=== PATIENT | male | born 1990 | race Caucasian/White ===

== ENCOUNTER 2020-11-25 16:21 | Observation (INO) | payer BC ==
[~2020-11-25] VITALS: Ht 182.9 cm; Wt 96.6 kg
[2020-11-25 16:21] VITALS: BP 123/84
[2020-11-25 16:56] LABS: BASO % 0.1 % (0.0-1.0); EOS # 0.1 10*3/uL (0.0-0.4); EOS % 0.7 % (1.0-4.0); HEMATOCRIT 42.6 % (42.0-52.0); LYMPH % 13.7 % (27.0-41.0); MEAN CELL VOLUME 90.4 fl (80.0-94.0); MEAN CORPUSCULAR HGB 30.6 pg (27.0-31.0); MEAN CORPUSCULAR HGB CONC 33.8 g/dl (33.0-37.0); MONO # 0.3 10*3/uL (0.1-1.0); MONO % 4.2 % (3.0-9.0); NEUT # 5.9 10*3/uL (2.3-7.9); PLATELET COUNT AUTOMATED 208 10*3/uL (130-400); RED BLOOD COUNT 4.71 10*6/uL (4.50-5.90); RED CELL DISTRI WIDTH 12.3 % (0-14.5); WHITE BLOOD COUNT 7.3 10*3/uL (4.8-10.8)
[2020-11-25 17:07] LABS: ACT PARTIAL THROMBO TIME 26.4 SECONDS (20.0-32.1); INTERNATIONAL NORM RATIO 1.1 (2.0-3.5)
[2020-11-25 17:15] LABS: ALBUMIN 3.6 gm/dl (3.1-4.5); ALKALINE PHOSPHATASE 58 U/L (45-117); BUN 13 mg/dl (7-24); CHLORIDE 108 mmol/L (98-107); CREATININE 0.88 mg/dL (0.70-1.30); LIPASE 113 U/L (73-393); POTASSIUM 4.1 mmol/L (3.5-5.1); SGOT/AST 9 IU/L (3-35); SGPT/ALT 23 U/L (12-78); SODIUM 139 mmol/L (136-145); TOTAL PROTEIN 6.9 gm/dL (6.4-8.2); TROPONIN I < 0.015 ng/ml (<0.045)
[2020-11-25 21:00] VITALS: BP 120/80
[2020-11-25 21:45] VITALS: BP 128/81
[2020-11-25] MEDS ORDERED: ZINC30 M1 PO (22:02)
[2020-11-25] MEDS ORDERED: VITAMIN D350 MCG PO (22:02)
[2020-11-26] VITALS: BP 118/79
[2020-11-26 06:09] LABS: BUN 12 mg/dl (7-24); CHLORIDE 108 mmol/L (98-107); CREATININE 0.87 mg/dL (0.70-1.30); POTASSIUM 3.8 mmol/L (3.5-5.1); SODIUM 140 mmol/L (136-145)
[2020-11-26 06:13] LABS: BASO % 0.2 % (0.0-1.0); EOS # 0.1 10*3/uL (0.0-0.4); EOS % 2.2 % (1.0-4.0); HEMATOCRIT 41.3 % (42.0-52.0); LYMPH # 3.2 10*3/uL (1.3-4.4); LYMPH % 49.8 % (27.0-41.0); MEAN CELL VOLUME 91.6 fl (80.0-94.0); MEAN CORPUSCULAR HGB 30.4 pg (27.0-31.0); MEAN CORPUSCULAR HGB CONC 33.2 g/dl (33.0-37.0); MEAN PLATELET VOLUME 9.1 fl (9.6-12.3); MONO # 0.5 10*3/uL (0.1-1.0); MONO % 7.5 % (3.0-9.0); NEUT # 2.6 10*3/uL (2.3-7.9); PLATELET COUNT AUTOMATED 222 10*3/uL (130-400); RED BLOOD COUNT 4.51 10*6/uL (4.50-5.90); RED CELL DISTRI WIDTH 12.5 % (0-14.5); WHITE BLOOD COUNT 6.4 10*3/uL (4.8-10.8)
[2020-11-26 08:00] VITALS: BP 113/60
[2020-11-26 12:00] VITALS: BP 119/63
== END 2020-11-26 16:30 | disposition home or self-care (01) ==
LOC: ED 16:21 → EDHOLD 18:28 → 4E 19:45
PROVIDERS: Emergency Medicine; Internal Medicine; ADMIT Student in an Organized Health Care Education/Training Program; ATTEND Student in an Organized Health Care Education/Training Program
DX: U07.1 COVID-19 (principal); S16.1XXA Strain of muscle, fascia and tendon at neck level, initial encounter; R55 Syncope and collapse; E83.51 Hypocalcemia; E87.8 Other disorders of electrolyte and fluid balance, not elsewhere classified; D64.9 Anemia, unspecified; R43.0 Anosmia; V87.7XXA Person injured in collision between other specified motor vehicles (traffic), initial encounter; Y93.89 Activity, other specified; Y92.89 Other specified places as the place of occurrence of the external cause

== ENCOUNTER 2023-06-08 02:38 | Emergency (ER) | payer BC ==
[~2023-06-08] VITALS: Ht 180.3 cm; Wt 120.2 kg
[~2023-06-08 02:38] MED LIST: VITAMIN D350 MCG PO; ZINC30 M1 PO
[2023-06-08] MEDS ORDERED: ACID REDUCER10 MG PO (02:57)
[2023-06-08] MEDS ORDERED: NAPROXEN500 MG PO (02:57)
[2023-06-08] MEDS ORDERED: DOXYCYCLINE HY100 M3 PO (02:57)
[2023-06-08] MEDS ORDERED: AMOX-CLAV 875-1 EACH PO (03:01)
[2023-06-08] MEDS ORDERED: PREDNISONE20 M1 PO (03:01)
== END 2023-06-08 03:17 | disposition home or self-care (01) ==
LOC: ED 02:38
DX: H66.91 Otitis media, unspecified, right ear (principal); Z98.890 Other specified postprocedural states